=== PATIENT | female | born 1940 | race Caucasian/White ===

== ENCOUNTER → 2016-11-11 | Outpatient (CLI) | payer MEDICARE, BC ==
--- NOTE | 2016-11-11 12:39 | CT ---
EXAMINATION TYPE: CT abdomen pelvis wo con DATE OF EXAM: 11/11/2016 COMPARISON: NONE HISTORY: LLQ pain CT DLP: 466.9 mGycm Examination of the solid and hollow viscera is limited given the lack of contrast. FINDINGS: LUNG BASES: No evidence for nodule. No evidence for infiltrate. LIVER/GB: The gallbladder is unremarkable. No space-occupying hepatic lesion. PANCREAS: No pancreatic mass identified. No inflammatory process seen. SPLEEN: No evidence for splenomegaly. No intrasplenic lesions seen. ADRENALS: No adrenal nodules identified. No evidence for thickening. KIDNEYS: Small parapelvic renal cysts noted. No nephrolithiasis. No hydronephrosis. BOWEL: Appendix has a normal appearance. No evidence of bowel obstruction. No inflammatory process. Lymph nodes: No evidence for adenopathy greater than 1 cm. Abdominal aorta: Atheromatous changes seen. No evidence for aneurysm. Genital organs: No significant abnormality. Other: Right hip prosthesis. Vacuum changes lower lumbar spine. IMPRESSION: NO ACUTE INTRA-ABDOMINAL PROCESS IDENTIFIED.
== END | disposition home or self-care (01) ==
LOC: RADCTMAIN 10:53
PROVIDERS: ATTEND Family Medicine
DX: R10.9 Unspecified abdominal pain (principal)
CPT/HCPCS: 74176

== ENCOUNTER → 2017-01-06 | Outpatient (CLI) | payer MEDICARE, BC ==
[2017-01-06 11:28] LABS: CH 31.6; CHCM 33.5; HCT 43.3 % (34.0-46.0); HGB 14.4 gm/dL (11.4-16.0); MCH 31.5 pg (25.0-35.0); MCHC 33.2 g/dL (31.0-37.0); MCV 94.8 fL (80.0-100.0); Mean Platelet Volume 7.9; RBC 4.57 m/uL (3.80-5.40); RDW 13.8 % (11.5-15.5)
[2017-01-06 11:31] LABS: INR 1.1 (<1.2)
[2017-01-06 11:32] LABS: Partial Thromboplastin Time 23.7 sec (22.0-30.0); Prothrombin Time 10.9 sec (9.0-12.0)
[2017-01-06 11:49] LABS: ALT 29 U/L (9-52); AST 24 U/L (14-36); Alkaline Phosphatase 80 U/L (38-126); Anion Gap 9 mmol/L; Blood Urea Nitrogen 15 mg/dL (7-17); Calcium 9.6 mg/dL (8.4-10.2); Carbon Dioxide 27 mmol/L (22-30); Chloride 105 mmol/L (98-107); Glucose 92 mg/dL (74-99); Non-African American GFR(MDRD) >60 (>60 ml/min/1.73 sqM); Potassium 4.7 mmol/L (3.5-5.1); Sodium 141 mmol/L (137-145); Total Bilirubin 1.2 mg/dL (0.2-1.3); Total Protein 7.3 g/dL (6.3-8.2)
[2017-01-06 11:57] LABS: Appearance,Urine Clear (Clear); Bacteria,Urine Rare /hpf; Bilirubin,Urine Negative (Negative); Glucose,Urine (UA) Negative (Negative); Ketones,Urine Negative (Negative); Leukocyte Esterase,Urine Moderate (Negative); Mucus,Urine Rare /hpf; Nitrite,Urine Negative (Negative); PH, Urine 5.5 (5.0-8.0); Particle Count 2682; Protein,Urine Trace (Negative); RBC,Urine 2 /hpf (0-5); Specific Gravity,Urine 1.022 (1.001-1.035); Squamous Epithelial Cell,Urine 3 /hpf (0-4); UA Billing (MACRO vs. MICRO) MICRO; Urobilinogen,Urine <2.0 mg/dL (<2.0); WBC,Urine 11 /hpf (0-5)
== END | disposition home or self-care (01) ==
LOC: LABPAT 10:33
PROVIDERS: ATTEND Orthopaedic Surgery
DX: Z01.818 Encounter for other preprocedural examination (principal)
CPT/HCPCS: 80053; 81001; 85027; 85610; 85730; 87070

== ENCOUNTER 2017-01-15 09:45 | Inpatient (IN) | payer MEDICARE, BC ==
[2017-01-11 15:55] VITALS: BMI 27.4
[~2017-01-15 09:45] MED LIST: ACETAMINOPHEN TAB 500 MG TAB PO ONE; CLINDAMYCIN 900 MG in DEXTROSE 5% IN WATER 50 ML IVPB ONE; DEXAMETHASONE SOD PHOSPHATE 10 MG/ML 1 ML VIAL IV ONE; HYDROmorphone 0.5 MG/0.5 ML SYRINGE IVP PRN; LIDOCAINE 1% 20 ML VIAL (10MG/ML) FOR IV START INTRADERMA PRN; MELOXICAM 7.5 MG TAB PO ONE; ONDANSETRON 4 MG/2 ML VIAL IVP ONE; SCOPOLAMINE 1.5MG/72HR PATCH TRANSDERM ONE; TRANEXAMIC ACID 1,000 MG in SODIUM CHLORIDE 0.9% 100 ML IVPB ONE
[2017-01-15] MEDS ORDERED: HYDROcodone/APAP 5-325MG 1 EACH TAB PO PRN ×2 (10:58)
[2017-01-15] MEDS ORDERED: DIAZEPAM 5 MG TAB PO PRN ×2 (10:58)
[2017-01-15] MEDS ORDERED: HYDROmorphone 0.5 MG/0.5 ML SYRINGE IVP PRN ×3 (10:58)
[2017-01-15] MEDS ORDERED: MAGNESIUM HYDROXIDE 2,400 MG/10 ML CUP PO PRN (10:58)
[2017-01-15] MEDS ORDERED: BISACODYL 10 MG SUPP RECTAL PRN (10:58)
[2017-01-15] MEDS ORDERED: hydrOXYzine PAMOATE 25 MG CAP PO PRN (10:58)
[2017-01-15] MEDS ORDERED: NALOXONE 0.4 MG/ML 1 ML VIAL IV PRN (10:58)
[2017-01-15] MEDS ORDERED: ONDANSETRON 4 MG/2 ML VIAL IVP PRN (10:58)
[2017-01-15] MEDS ORDERED: NA PHOS,M-B/NA PHOS,DI-BA 133 ML ENEMA RECTAL PRN (10:58)
[2017-01-15] MEDS ORDERED: ROPIVACAINE 246.25 MG, EPINEPHrine 0.5 MG, KETOROLAC 30 MG, cloNIDine HCL/PF 80 MCG, WA... MISCELLANE ONE ×5 (11:35)
[2017-01-15] MEDS: LACTATED RINGERS 1,000 ML IV SCH (11:38)
[2017-01-15] MEDS: MIDAZOLAM 2 MG/2 ML VIAL IV PRN ×2 (12:07→12:23)
[2017-01-15] MEDS ORDERED: MIDAZOLAM 2 MG/2 ML VIAL ONE (12:30)
[2017-01-15] MEDS ORDERED: LIDOCAINE 1% INJ 10MG/ML (20 ML MDV) ONE (12:30)
[2017-01-15] MEDS ORDERED: fentaNYL (PF) 50 MCG/ML 2 ML AMP ONE (12:30)
[2017-01-15] MEDS ORDERED: PHENYLEPHRINE-0.9% NACL SYG 1 MG/10 ML SYRINGE ONE (12:30)
[2017-01-15] MEDS ORDERED: TRANEXAMIC ACID 1,000 MG/10 ML VIAL ONE (12:30)
[2017-01-15] MEDS ORDERED: SODIUM CHLORIDE 0.9% 100 ML BAG ONE (12:30)
[2017-01-15] MEDS ORDERED: PROPOFOL 10 MG/ML 20 ML VIAL IV ONE (12:30)
[2017-01-15] MEDS ORDERED: CLINDAMYCIN 1,800 MG in SODIUM CHLORIDE 0.9% IRRIGATIO 3,000 ML IRRIGATION ONE (13:10)
[2017-01-15] MEDS ORDERED: ROPIVACAINE 1,100 MG, SODIUM CHLORIDE 0.9% 330 ML MISCELLANE PRN ×2 (13:13)
--- NOTE | 2017-01-15 13:15 | P.ONQ ---
Anesthesiology Proc Note - PNB - Peripheral Nerve Block Performed Right Adductor Canal Infusion Time Out Performed: Yes Procedure Start Time: 12:07 Procedure Stop Time: 12:14 Indication: Acute Post-Operative Pain, Requested by physician Sedation Type: Sedate with meaningful contact maintained Preparation: Sterile Dressing Position: Supine Catheter: Indwelling Needle Types: On-Q Needle Size: 100mm (4") Needle Gauge: 21 Technique: Ultrasound Injectate: 0.5% Ropivacaine (see comment for volume) (ropi.5% 15cc) Blood Aspirated: No Pain Paresthesia on Injection Noted: No Resistance on Injection: Normal Events: Uneventful and Well Tolerated
[2017-01-15] MEDS ORDERED: LACTATED RINGERS 1,000 ML IV ONE (13:29)
--- NOTE | 2017-01-15 13:59 | P.OP ---
Date of Procedure: 01/15/17 Preoperative Diagnosis: Severe osteoarthritis right knee Postoperative Diagnosis: Severe osteoarthritis right knee Procedure(s) Performed: Right total knee arthroplasty Implants: Moreau and Nephew Oxinium femoral component size 5, right Moreau & Nephew Paloma II right nonporous tibial baseplate size 4 Moreau [employer] Nephew size 18 mm Legion XLPE dished articular insert, size 3-4 Moreau & Nephew Paloma II resurfacing patellar component, 29 mm All components were cemented using Geovanna bone cement.. The articulation is ceramic on polyethylene. Anesthesia: spinal Surgeon: Donte Worthy Black [employer] White Printer Operator #1: Lary Thapa Estimated Blood Loss (ml): 50 Pathology: other (Bone and cartilage) Condition: stable Disposition: PACU Indications for Procedure: After failure of conservative treatment we discussed the surgical and nonsurgical treatment options at length. Patient wishes to proceed with a total knee arthroplasty. Complications specific to this procedure were discussed at length, including but not limited to infection, bleeding, stiffness , and nerve injury. Patient is aware of all these complications and informed consent was obtained Operative Findings: The operative findings are consistent with severe osteoarthritis of the right knee Description of Procedure: Patient was seen in the preoperative area consent was reviewed and operative site was marked with a skin marker. An adductor canal pain catheter was placed by anesthesia in the preoperative area. Patient was then brought to the operating room and given preoperative antibiotics intravenously. A spinal anesthetic was administered by the anesthesia department. A tourniquet was placed on the upper thigh and the lower extremity was prepped and draped in usual sterile fashion. A gram of transexamic acid was given. A universal timeout was then performed which confirmed the patient's name, surgical site, ALLERGIES, and consent. The lower extremity was then exsanguinated and tourniquet was inflated to 250 mmHg. A standard and anterior midline approach to the knee was performed. The skin and subcutaneous tissue was dissected down to the patellar tendon. A medial parapatellar arthrotomy was then performed. The knee was then extended, the patellar was everted, and the knee was again flexed. Anterior horns of both menisci were excised, and a release was performed to the posterior medial aspect of the knee. On gross visual inspection, there was complete loss of articular cartilage in the medial and patellofemoral joint spaces. There was also significant cartilage damage in the lateral compartment. There were multiple periarticular osteophytes which were then removed with a Ronguer. The femoral canal was then opened with the appropriate drill, and the intramedullary femoral cutting guide was then placed and set for 4 of valgus. The distal femoral cutting block was then pinned in place, and the distal femur was then cut. The cutting block was then removed and the cut was checked for flatness. Next, the sizing guide was then placed and set for 3 external rotation based off of the epicondylar axis and Whitesides line. After the femur was sized, the appropriate 4-in-1 cutting block was then pinned in place. The anterior condyles were cut without notching. The posterior and chamfer cuts were performed while protecting the collateral ligaments. The cutting block was then removed, and the femoral canal was plugged with autologous bone. Attention was then directed to the tibia. The remaining ACL was removed with a Ronguer, and the tibia was then gently subluxed forward with a large bent knee retractor. Any remaining menisci was excised. The posterior lateral corner was cauterized in order to cauterize the lateral geniculate artery. The extra medullary tibial cutting guide was then placed, set for the appropriate rotation , slope, and depth of resection. The proximal tibia cutting guide was then pinned in place. Proximal tibia was then cut and sized. Next trials were then placed with the appropriate-sized insert. The knee was able to fully extend and flex to 130 and was stable throughout all range of motion. The knee was then extended, patella everted. Patella was then measured, and then using an osteotomy guide, the patella was cut at the appropriate level. The patella was then measured and drilled and the patella trial was then placed. The knee was then taken through range of motion with the patella trial and the patella tracked normally. The knee was then extended patella trial was then removed and the patella was everted. Knee was then flexed and lug holes were drilled through the femoral trial and the femoral trial was then removed. The tibial was then exposed, and the tibial broach guide was then pinned in place after it was set for the appropriate rotation to allow for the most coverage without overhang. The tibia was then reamed and broached. The cut surfaces of bone were then irrigated with pulsatile lavage. The posterior structures were injected with the ropivacaine solution. The knee was also irrigated with Irrisept solution. The components were then opened, the cement was mixed, and the components were then cemented in place. The cement was allowed to harden with the knee in full extension. While the cement was hardening, the remaining soft tissues were then injected with a ropivacaine solution, which consisted of 246.25 mg of ropivacaine, 0.5 mg of epinephrine, 30 mg of Toradol, 80 g of clonidine, and 48.45 mL of sterile water, for a total of 100 mL of fluid injected. After the cemented hardened. The tourniquet was released, and hemostasis was obtained. A second gram of transexamic acid was given. The knee was again irrigated. The knee was again taken through range of motion and found to be stable throughout all range of motion of 0-130 , and the patella tracked normally. The fascia was then closed with #2 strata fix suture. The subcutaneous tissue was closed with 3-0 Vicryl and 3-0 strata fix. Dermabond tape was used for the skin and placed with the knee in flexion. The patient was placed in a sterile dressing. Patient was then transferred to recovery room in stable condition. The assistant designer JAQUELIN Polanco was required due the complexity surgery and the need for a skilled assistant men's lacrosse coach. She assisted in positioning, draping, retraction, and closure of the wound.
--- NOTE | 2017-01-15 14:35 | XR ---
EXAMINATION TYPE: XR knee limited RT DATE OF EXAM: 01/15/2017 CLINICAL HISTORY: Right knee pain and arthritis status post total knee replacement. TECHNIQUE: Portable AP and crosstable lateral views of the right knee are obtained immediately posto peratively. COMPARISON: None FINDINGS: Metallic hardware from total right knee arthroplasty is seen and appears satisfactory in a lignment and position. There is evidence of recent surgery with diffuse subcutaneous gas and soft ti ssue swelling noted. IMPRESSION: METALLIC HARDWARE FROM TOTAL RIGHT KNEE ARTHROPLASTY IS SATISFACTORY IN ALIGNMENT.
[2017-01-15] MEDS: SODIUM CHLORIDE 0.9% 1,000 ML IV SCH (15:54)
[2017-01-15] MEDS: CLINDAMYCIN 900 MG in DEXTROSE 5% IN WATER 50 ML IVPB SCH ×4 (17:10→23:22)
[2017-01-15] MEDS ORDERED: WARFARIN 5 MG TAB PO ONE (18:00)
[2017-01-15] MEDS ORDERED: SENNOSIDES-DOCUSATE SODIUM 1 EACH TAB PO SCH (21:00)
[2017-01-16 00:23] VITALS: RESP 16
[2017-01-16] MEDS: SODIUM CHLORIDE 0.9% 1,000 ML IV SCH (03:41)
[2017-01-16] MEDS ORDERED: LEVOTHYROXINE 25 MCG TAB PO SCH (06:30)
[2017-01-16 07:54] LABS: Basophils % (A) 0 %; CH 31.6; CHCM 32.8; Eosinophils # (A) 0.1 k/uL (0-0.7); Eosinophils % (A) 1 %; HCT 37.3 % (34.0-46.0); HDW 2.12; HGB 12.2 gm/dL (11.4-16.0); Luc # (Auto) 0.08; Luc % (Auto) 1; Lymphocytes # (A) 1.1 k/uL (1.0-4.8); Lymphocytes % (A) 11 %; MCH 31.7 pg (25.0-35.0); MCHC 32.7 g/dL (31.0-37.0); MCV 96.9 fL (80.0-100.0); Mean Platelet Volume 8.4; Monocytes # (A) 0.5 k/uL (0-1.0); Monocytes % (A) 5 %; Neutrophils # (A) 8.7 k/uL (1.3-7.7); Neutrophils % (A) 83 %; RBC 3.85 m/uL (3.80-5.40); RDW 13.8 % (11.5-15.5); WBC 10.5 k/uL (3.8-10.6); WBC (Perox) 10.82
[2017-01-16 07:57] LABS: INR 1.2 (<1.2); Prothrombin Time 12.3 sec (9.0-12.0)
[2017-01-16] MEDS ORDERED: amLODIPine 2.5 MG TAB PO SCH (09:00)
[2017-01-16] MEDS ORDERED: MELOXICAM 7.5 MG TAB PO SCH (09:00)
[2017-01-16] MEDS ORDERED: LISINOPRIL 20 MG TAB PO SCH (09:00)
[2017-01-16] MEDS ORDERED: CLOPIDOGREL 75 MG TAB PO SCH ×2 (09:00)
--- NOTE | 2017-01-16 10:35 | P.DS ---
Providers Date of admission: 01/15/17 10:52 Expected date of discharge: 01/16/17 Attending physician: Donte Worthy Consults: 01/15/17 10:58 Consult Physician Routine Consulting Provider: Bess Conley Consult Reason/Comments: medical management and anticoagulation Do you want consulting provider notified?: Yes 01/15/17 15:08 Consult Physician Routine Consulting Provider: Han Trevino Consult Reason/Comments: medical management Do you want consulting provider notified?: Yes Primary care physician: Bess Conley - Discharge Diagnosis(es) (1) Osteoarthritis of right hip Current Visit: No Status: Acute (2) Status post total hip replacement, right Current Visit: No Status: Acute Priority: Medium Hospital Course: This is a pleasant 76-year-old female who presented with severe osteoarthritis of the right knee who failed outpatient conservative therapy. She was admitted for a right total knee arthroplasty performed by Dr. Donte Worthy. The patient tolerated the procedure well and did well postoperatively. She has been able to ambulate to the bathroom. Her pain is been well-controlled. Patient feel she is ready for discharge home today. Condition on day of discharge stable. Patient will be discharged home. Patient was cleared preoperatively for surgery by Dr. Trevino. Patient is currently waiting for evaluation by Dr. Trevino prior to her discharge home. We'll plan to have him monitor and control her blood pressure medication prior to discharge. Patient currently denies any nausea, vomiting, fever, or chills. Patient is eating and voiding freely without difficulty. Patient may shower without a dressing intact over the incision at the right knee after incision has been dry for 72 hours. She may continue ambulating as tolerated on right lower extremity. She is encouraged to use her CPM machine approximate 5-6 hours per day as tolerated. Patient will be started on Coumadin over the next 4 weeks with weekly PT/INR lab draws. Patient was on Plavix prior to surgical intervention following previous stroke years ago. Plavix was stopped prior to surgery. She has been on the Coumadin sliding scale postsurgically. Following her previous right total hip arthroplasty, she was also on Coumadin for approximately 4 weeks for anticoagulation prior to resuming Plavix. Plavix use can be re- evaluated and discussed during her follow-up appointment. Patient also has an On-Q pain pump intact. She may continue this pump and then discontinue per recommendations by anesthesiology. She is given prescriptions for [place] 5 mg/ 325 mg, Senokot, Coumadin 2.5 mg, CPM machine, and weekly PT/INR lab draws at discharge. Physical Exam on Total Knee Arthroplasty: Status post surgical day number 1 Patient is awake, alert, and oriented 3 Vital signs stable Good chest excursion with deep inspiration and expiration Abdomen soft nontender No signs or symptoms of DVT; no calf pain Dressing is over the right knee dry and intact the small [place] of drying blood at approximately the middle of the incision site; no evidence of active drainage ; no erythema, purulence, or signs of infection; dressing will be changed prior to discharge home On-Q pain pump intact Patient has full foot and ankle motion without difficulty bilateral lower extremities Dorsiflexion, plantar flexion, and extensor hallucis longus positive sustained bilaterally Neurovascular status left lower extremity intact Capillary refill lower extremity is bilaterally less than 2 seconds Procedures: Right total knee arthroplasty Patient Condition at Discharge: Stable Plan - Discharge Summary New Discharge Prescriptions: New HYDROcodone/APAP 5-325MG [[place] 5-325] 1 - 2 tab PO Q4-6H PRN #90 tab PRN Reason: Pain Sennosides-Docusate Sodium [Senokot-S] 1 tab PO BID #60 tablet Warfarin Sodium [Coumadin] 2.5 mg PO DAILY #30 tablet No Action Levothyroxine Sodium [Synthroid] 25 mcg PO DAILY Multivit-Min/FA/Lycopene/Lut [Centrum Silver Tablet] 1 tab PO DAILY Lisinopril [Prinivil] 20 mg PO DAILY amLODIPine [Norvasc] 2.5 mg PO DAILY Clopidogrel [Plavix] 75 mg PO DAILY Calcium Carbonate/Vitamin D3 [Calcium 600-Vit D3 400 Tablet] 1 tab PO DAILY Acetaminophen [Tylenol Arthritis] 650 mg PO Q6HR PRN PRN Reason: Pain Sulfamethox-Tmp 800-160Mg [Bactrim DS 800-160 mg] 1 tab PO Q12HR Discharge Medication List Levothyroxine Sodium [Synthroid] 25 mcg PO DAILY 12/28/14 [History] Lisinopril [Prinivil] 20 mg PO DAILY 12/28/14 [History] Multivit-Min/FA/Lycopene/Lut [Centrum Silver Tablet] 1 tab PO DAILY 12/28/14 [ History] Acetaminophen [Tylenol Arthritis] 650 mg PO Q6HR PRN 01/11/17 [History] Calcium Carbonate/Vitamin D3 [Calcium 600-Vit D3 400 Tablet] 1 tab PO DAILY [History] Clopidogrel [Plavix] 75 mg PO DAILY 01/11/17 [History] amLODIPine [Norvasc] 2.5 mg PO DAILY 01/11/17 [History] Sulfamethox-Tmp 800-160Mg [Bactrim DS 800-160 mg] 1 tab PO Q12HR 01/14/17 [ History] HYDROcodone/APAP 5-325MG [[place] 5-325] 1 - 2 tab PO Q4-6H PRN #90 tab 01/15/17 [ Rx] Sennosides-Docusate Sodium [Senokot-S] 1 tab PO BID #60 tablet 01/15/17 [Rx] Warfarin Sodium [Coumadin] 2.5 mg PO DAILY #30 tablet 01/15/17 [Rx] Follow up Appointment(s)/Referral(s): Donte Worthy DO [Doctor of Osteopathic Medicine] - 2 Weeks Ambulatory/Diagnostic Orders: Continuous Passive Motion (CPM) Machine [DME.AMB1] Time Frame: 2 Weeks, Location : Determined By Patient Prothrombin Time INR [LAB.AMB] Time Frame: 4 Weeks, Location: Determined By Patient Activity/Diet/Wound Care/Special Instructions: 1. Weight-bear as tolerated right lower extremity 2. May shower without dressing over the right knee once incision has remained dry for 72 hours 3. Continue with CPM machine approximate 5-6 hours per day times 4. Take medications as prescribed 5. Continue with Coumadin as prescribed with weekly PT/INR lab draws Discharge Disposition: HOME WITH HOME HEALTH SERVICES
[2017-01-16] MEDS: LACTATED RINGERS 1,000 ML IV SCH (11:22)
--- NOTE | 2017-01-16 11:23 | P.PN ---
Progress Note - Text 01/16 5286 76-year-old female status post total knee replacement by Dr. Donte Worthy. Patient has an On-Q pump for postop pain control and she was seen this morning, she has no pain on the knee, she has complains of tourniquet pain. Solution running at 8 mL an hour. Plan to continue On-Q pump infusion.,
[2017-01-16] MEDS ORDERED: MULTIVITAMINS, THERA 1 EACH TAB PO SCH (12:00)
--- NOTE | 2017-01-16 13:03 | P.CONS ---
History of Present Illness - Reason for Consult Consult date: 01/16/17 Medical management - Chief Complaint Chronic osteoarthritis of the right hip - History of Present Illness This is a 76-year-old female with past medical history noted below significant for chronic osteoarthritis of the right hip that was admitted to the hospital for elective total right hip arthroplasty. Patient is postoperative day #1. She tolerated the surgery well. She does not have any concerns or complaints. She is looking forward to go home today. I was asked to see her for medical management. Blood pressure borderline low this morning with a systolic in the 100 range. Patient denies any dizziness or lightheadedness. Review of Systems Review of system: 14 points review of systems were obtained and were negative except to what were mentioned in the HPI. Past Medical History Past Medical History: CVA/TIA, Hypertension, Osteoarthritis (OA), Thyroid Disorder Additional Past Medical History / Comment(s): stroke 2005-no residual effects, finishing antibiotic for UTI History of Any Multi-Drug Resistant Organisms: None Reported Past Surgical History: Cholecystectomy, Joint Replacement Additional Past Surgical History / Comment(s): cataracts removed, partial thyroidectomy, 01-08-15 TOTAL RT HIP ANT APPROACH Past Anesthesia/Blood Transfusion Reactions: No Reported Reaction Smoking Status: Former smoker - Past Family History Mother Family Medical History: Hypertension Father Family Medical History: No Reported History Additional Family Medical History / Comment(s): Pancreatic cancer Medications and Allergies Home Medications Medication Instructions Recorded Confirmed Type Levothyroxine Sodium [Synthroid] 25 mcg PO DAILY 12/28/14 01/15/17 History Lisinopril [Prinivil] 20 mg PO DAILY 12/28/14 01/15/17 History Multivit-Min/FA/Lycopene/Lut 1 tab PO DAILY 12/28/14 01/15/17 History [Centrum Silver Tablet] Acetaminophen [Tylenol Arthritis] 650 mg PO Q6HR PRN 01/11/17 01/15/17 History Calcium Carbonate/Vitamin D3 1 tab PO DAILY 01/11/17 01/15/17 History [Calcium 600-Vit D3 400 Tablet] Clopidogrel [Plavix] 75 mg PO DAILY 01/11/17 01/15/17 History HYDROcodone/APAP 5-325MG [[place] 1 - 2 tab PO Q4-6H PRN #90 tab 01/15/17 Rx 5-325] Sennosides-Docusate Sodium 1 tab PO BID #60 tablet 01/15/17 Rx [Senokot-S] Warfarin Sodium [Coumadin] 2.5 mg PO DAILY #30 tablet 01/15/17 Rx Allergies Allergy/AdvReac Type Severity Reaction Status Date / Time amoxicillin Allergy Unknown Verified 01/15/17 11:27 Physical Exam Vitals: Vital Signs Temp Pulse Pulse Resp BP BP Pulse Ox 01/16/17 10:03 101/64 01/16/17 07:31 97.9 F 82 16 106/70 100 01/16/17 00:06 97.5 F L 80 16 97/60 93 L 01/15/17 19:22 97.6 F 90 17 105/67 97 01/15/17 17:15 95 115/56 01/15/17 17:00 93 125/56 01/15/17 16:45 97 123/68 01/15/17 16:30 97 113/61 01/15/17 16:15 98 114/56 01/15/17 16:00 90 162/118 01/15/17 15:45 92 130/63 01/15/17 15:30 90 121/58 01/15/17 15:15 97.8 F 90 16 120/59 95 01/15/17 15:00 86 16 107/51 98 01/15/17 14:45 93 18 110/53 99 01/15/17 14:30 86 16 111/55 100 01/15/17 14:18 96.8 F L 88 20 113/58 98 Intake and Output 01/15/17 01/16/17 01/16/17 22:59 06:59 14:59 Intake Total 527.5 675 Balance 527.5 675 Intake: Intake, IV Titration 227.5 375 Amount Clindamycin 900 mg In 50 Dextrose 5% in Water 50 ml @ 112 mls/hr IVPB ONCE ONE Rx#:[id number] Sodium Chloride 0.9% 1, 227.5 325 000 ml @ 65 mls/hr IV . [id number] [facility] Rx#:[id number] Oral 300 300 Other: Voiding Method Toilet # Voids 2 3 General: The patient is awake and alert, in no distress Eye: there is normal conjunctiva bilaterally. Neck: The neck is supple, there is no JVD. Cardiovascular: Normal S1-S2, no S3-S4, no murmurs. Respiratory: Lungs clear to auscultation bilaterally Gastrointestinal: Abdomen is soft, nontender Musculoskeletal: There is no pedal edema. Neurological:. Speech is normal. Skin: Skin is warm and dry Results CBC & Chem 7: 01/16/17 07:35 Labs: Abnormal Lab Results - Last 24 Hours (Table) 01/16/17 01/16/17 Range/Units 07:35 07:35 Neutrophils # 8.7 H (1.3-7.7) k/uL PT 12.3 H (9.0-12.0) sec INR 1.2 H (<1.2) Assessment and Plan Plan: 1. Status post total right hip arthroplasty: Continue postoperative care per orthopedic surgery 2. DVT prophylaxis on Coumadin per orthopedic protocol 3. Essential hypertension: Blood pressure borderline low. I advised the patient to discontinue amlodipine and hold taking lisinopril for systolic blood pressure below 110 and continue to monitor her blood pressure at home closely. Today, I reviewed her medication list and lab work resolved. Patient is medically cleared for discharge.
[2017-01-16 13:46] VITALS: BP 111/69; PULSE 90; TEMP 98
[2017-01-16] MEDS ORDERED: WARFARIN 7.5 MG TAB PO ONE (18:00)
== END 2017-01-16 15:20 | disposition home health service (06) | DRG 470 ==
LOC: 2ORMAIN 10:52 → 3SUR 14:32
PROVIDERS: ADMIT Orthopaedic Surgery; ATTEND Orthopaedic Surgery
PROC: 0SRC0J9 Replacement of Right Knee Joint with Synthetic Substitute, Cemented, Open Approach (ICD-10-PCS; principal; 2017-01-15 12:30)
DX: M17.11 Unilateral primary osteoarthritis, right knee (principal); I10 Essential (primary) hypertension; Z79.01 Long term (current) use of anticoagulants; Z79.02 Long term (current) use of antithrombotics/antiplatelets; Z79.899 Other long term (current) drug therapy; Z82.49 Family history of ischemic heart disease and other diseases of the circulatory system; Z86.73 Personal history of transient ischemic attack (TIA), and cerebral infarction without residual deficits; Z87.891 Personal history of nicotine dependence; Z96.641 Presence of right artificial hip joint; Z88.1 Allergy status to other antibiotic agents
CPT/HCPCS: 85025; 85610; 88300